=== PATIENT | female | born 1970 | race Caucasian/White ===

== ENCOUNTER → 2016-07-22 | Outpatient (CLI) | payer OTHER ==
[~2016-07-22] MED LIST: GASTROGRAFIN SOLUTION 30ML (Q9963) As Ordered ONE; ISOVUE-370 76% 100ML VIAL (Q9967) As Ordered ONE
--- NOTE | 2016-07-22 17:29 | REP ---
CT ABDOMEN AND PELVIS WITH ORAL AND IV CONTRAST: TECHNIQUE: Axial contrast enhanced images from the lung bases to the pubic symphysis using 100 mL Isovue 370 intravenous contrast material with multiplanar reformations. In the visualized lung bases there is an oval nodular opacity in the right lower lobe laterally, 5 mm in diameter. Recommend CT of the chest to evaluate for other nodules. Liver, spleen, adrenals, pancreas, and kidneys are unremarkable. Gallbladder is grossly unremarkable. There is no hydronephrosis. There is no abdominal aortic aneurysm. No adenopathy, free air or free fluid is seen. No bowel wall thickening is seen. There is no evidence of appendicitis. A dominant follicle is seen in the right ovary measuring 1.4 cm in diameter. The dominant follicle in the left ovary measures 1.6 cm in diameter. There is no other evidence of pelvic mass. Urinary bladder appear unremarkable. IMPRESSION: Oval nodular opacity right lung base measures 5 mm in diameter. Recommend CT of the chest to evaluate for other nodules. There is a dominant follicle in each ovary. No free air or free fluid. No bowel wall thickening. No evidence of appendicitis. Unreviewed
== END ==
LOC: M RAD 14:24
PROVIDERS: ATTEND Physician Assistant
DX: R10.30 Lower abdominal pain, unspecified (principal)

== ENCOUNTER → 2016-07-22 | Outpatient (CLI) | payer OTHER ==
[2016-07-22 10:03] LABS: MEAN CORPUSCULAR HEMOGLOBIN 30.2 pg (27.0-33.0); MEAN CORPUSCULAR HGB CONC 33.8 g/dl (32.0-36.5); MEAN CORPUSCULAR VOLUME 89.2 fl (80.0-96.0); RED CELL DISTRIBUTION WIDTH 12.6 % (11.5-14.5); WHITE BLOOD COUNT 13.1 K/mm3 (4.0-10.0)
--- NOTE | 2016-07-22 10:06 | REP ---
ABDOMINAL SERIES: Supine and erect views of the abdomen demonstrate no free air and no evidence for bowel obstruction. I do not see significantly dilated small bowel loops. A metallic clip is seen in the right lower quadrant and other metallic clips seen in the pelvis. No abnormal calcifications are seen. An accompanying view of the chest demonstrates no acute infiltrate. Heart is normal in size and the mediastinal silhouette is unremarkable. IMPRESSION: Essentially negative abdominal series. Signed by Nicholas Del Rio MD 07/22/2016 05:24 P
[2016-07-22 10:18] LABS: ALBUMIN 3.9 GM/DL (3.2-5.2); ALBUMIN/GLOBULIN RATIO 1.22 (1.00-1.93); ALKALINE PHOSPHATASE 66 U/L (45-117); ALT/SGPT 15 U/L (12-78); ANION GAP 6 MEQ/L (8-16); AST/SGOT 13 U/L (15-37); BILIRUBIN,TOTAL 0.4 MG/DL (0.2-1.0); BLOOD UREA NITROGEN 9 MG/DL (7-18); CALCIUM LEVEL 8.6 MG/DL (8.5-10.1); CARBON DIOXIDE LEVEL 25 MEQ/L (21-32); CHLORIDE LEVEL 107 MEQ/L (98-107); CREATININE FOR GFR 0.85 MG/DL (0.55-1.02); GLOMERULAR FILTRATION RATE > 60.0 (>58); GLUCOSE, FASTING 81 MG/DL (70-105); POTASSIUM SERUM 4.5 MEQ/L (3.5-5.1); SODIUM LEVEL 138 MEQ/L (136-145); TOTAL PROTEIN 7.1 GM/DL (6.4-8.2)
[2016-07-22 10:31] LABS: ERYTHROCYTE SEDIMENTATION RATE 2 mm/hr (0-20)
[2016-07-22 10:54] LABS: EOSINOPHILS 2 % (0-5)
== END ==
LOC: M WUC 09:05
PROVIDERS: ATTEND Physician Assistant
DX: R10.30 Lower abdominal pain, unspecified (principal)

== ENCOUNTER → 2016-07-28 | Outpatient (CLI) | payer OTHER ==
[~2016-07-28] MED LIST changes: -GASTROGRAFIN SOLUTION 30ML (Q9963) As Ordered ONE
--- NOTE | 2016-07-31 07:24 | REP ---
Clinical: Pulmonary nodule. Technique: Axial contrast enhanced images from the lung bases to the thoracic inlet using 100 ml Isovue 370 intravenous contrast material with coronal and sagittal re-formations. Comparison: None. Findings: Scattered chronic-appearing interstitial and subpleural changes are noted. A 5 mm noncalcified pulmonary nodules identified in the right lower lobe (image 73). No further consolidation, nodule or mass lesion identified. No pleural effusion/reaction. No pneumothorax. Tracheobronchial tree is patent. No axillary, hilar, or mediastinal adenopathy. Thoracic aorta and heart/pericardium appear normal. Thyroid gland is normal. Surrounding musculoskeletal structures are intact. Impression: 1. Scattered chronic-appearing changes. 2. A 5 mm noncalcified nodule in the right lower lobe. Consider follow-up examination at 9-12 months. Signed by Shashank Fitzpatrick MD 07/31/2016 07:15 A
== END ==
LOC: M RAD 17:26
PROVIDERS: ATTEND Physician Assistant
DX: R91.1 Solitary pulmonary nodule (principal)

== ENCOUNTER → 2017-05-14 | Outpatient (CLI) | payer BC ==
[~2017-05-14] MED LIST changes: +ISOVUE-370 76% 100ML VIAL (Q9967) As Ordered; -ISOVUE-370 76% 100ML VIAL (Q9967) As Ordered ONE
== END ==
LOC: M RAD 08:42
DX: R91.1 Solitary pulmonary nodule (principal)

== ENCOUNTER → 2017-12-23 | Outpatient (CLI) | payer BC | LOC: M WUC 10:00 | DX: M79.642 Pain in left hand (principal) | CPT/HCPCS: 73130 ==

== ENCOUNTER → 2018-04-08 | Outpatient (REF) | payer BC ==
[2018-04-10 18:21] LABS: HPV HYBRID CAPTURE II Negative (Negative)
== END ==
LOC: M LAB REF 17:23
PROVIDERS: ATTEND Specialist
DX: Z12.4 Encounter for screening for malignant neoplasm of cervix (principal)
CPT/HCPCS: 87624; G0123

== ENCOUNTER → 2018-05-26 | Outpatient (CLI) | payer BC ==
[~2018-05-26] MED LIST changes: -ISOVUE-370 76% 100ML VIAL (Q9967) As Ordered; +ISOVUE-370 76% 100ML VIAL (Q9967) As Ordered ONE
--- NOTE | 2018-05-27 08:41 | REP ---
CT chest with IV contrast: History: Right lower lobe nodule. Annual follow-up. Comparison study May 14, 2017 and July 28, 2016. CT contrast dose: 75 ml of intravenous Isovue [address] findings: There has been no change in the size or appearance of the noncalcified 6 mm right lower lobe pulmonary nodule in the interval since the July 28, 2016 prior study. This has demonstrated just short of 2 years of stability. No other pulmonary nodule is appreciated. Lung gonzalez are otherwise clear. There is some biapical pleuroparenchymal fibrosis mild in degree. No hilar or mediastinal mass or adenopathy is observed. No adrenal lesion is seen on either side. Visualized upper abdominal structures remain unremarkable. No extrathoracic mass or adenopathy is seen. No bony abnormality is noted. Impression: The previously noted right lower lobe pulmonary nodule has demonstrated 22 months of stability. Electronically Signed by Rogerio Leach MD 05/27/2018 09:59 A
== END ==
LOC: M RAD 17:19
PROVIDERS: ATTEND Physician Assistant Medical
DX: R91.1 Solitary pulmonary nodule (principal)
CPT/HCPCS: 71260; Q9967

== ENCOUNTER 2018-07-15 21:22 | Emergency (ER) | payer BC ==
[~2018-07-15] VITALS: Ht 160 cm; Wt 52.3 kg
[2018-07-15] MEDS ORDERED: OXYC1TAB23 PO (21:36)
[2018-07-15] MEDS ORDERED: NS 1,000 ML IV ONE (22:15)
[2018-07-15] MEDS ORDERED: ONDANSETRON 4MG/2ML VIAL (J2405) IV ONE (22:15)
[2018-07-15 22:32] LABS: BASO # 0.1 10^3/uL (0.0-0.2); BASO % 1.2 % (0.0-1.0); EOS # 0.5 10^3/uL (0.0-0.50); EOS % 6.1 % (0.0-3.0); HEMATOCRIT 40.8 % (36.0-47.0); HEMOGLOBIN 13.7 g/dl (12.0-15.5); LYMPH % 35.6 % (24.0-44.0); MEAN CORPUSCULAR HEMOGLOBIN 29.4 pg (27.0-33.0); MEAN CORPUSCULAR HGB CONC 33.6 g/dl (32.0-36.5); MEAN CORPUSCULAR VOLUME 87.6 fl (80.0-96.0); MONO # 0.6 10^3/uL (0.0-0.8); MONO % 7.3 % (0.0-5.0); NEUTROPHILS # 4.2 10^3/uL (1.8-7.7); NEUTROPHILS % 49.6 % (36.0-66.0); PLATELET COUNT, AUTOMATED 337 10^3/uL (150-450); RED BLOOD COUNT 4.66 10^6/uL (4.00-5.40); WHITE BLOOD COUNT 8.4 10^3/uL (4.0-10.0)
[2018-07-15 22:35] LABS: URINE PREG TEST NEGATIVE (NEGATIVE)
[2018-07-15 23:02] LABS: ALBUMIN 4.4 GM/DL (3.2-5.2); ALT/SGPT 17 U/L (12-78); BILIRUBIN,DIRECT < 0.1 MG/DL (0.0-0.2); BILIRUBIN,TOTAL 0.3 MG/DL (0.2-1.0); BLOOD UREA NITROGEN 15 MG/DL (7-18); CALCIUM LEVEL 8.9 MG/DL (8.5-10.1); CARBON DIOXIDE LEVEL 25 MEQ/L (21-32); CHLORIDE LEVEL 108 MEQ/L (98-107); CREATININE FOR GFR 0.87 MG/DL (0.55-1.30); GLOMERULAR FILTRATION RATE > 60.0 (>58); GLUCOSE, FASTING 86 MG/DL (70-100); LIPASE 154 U/L (73-393); SODIUM LEVEL 138 MEQ/L (136-145); TOTAL PROTEIN 7.2 GM/DL (6.4-8.2)
[2018-07-15] MEDS ORDERED: ISOVUE-370 76% 100ML VIAL (Q9967) As Ordered ONE (23:08)
--- NOTE | 2018-07-15 23:55 | REPVR ---
EXAM: CT Abdomen and Pelvis With Contrast EXAM DATE/TIME: 07/15/2018 11:04 PM CLINICAL HISTORY: 47 years old, female; Abdominal pain; Localized; Right; Additional info: Right sided abdominal pain TECHNIQUE: Imaging protocol: Axial computed tomography images of the abdomen and pelvis with intravenous contrast. Coronal and sagittal reformatted images were created and reviewed. Radiation optimization: All CT scans at this facility use at least one of these dose optimization techniques: automated exposure control; mA and/or kV adjustment per patient size (includes targeted exams where dose is matched to clinical indication); or iterative reconstruction. Contrast material: ISO; Contrast volume: 100 ml; Contrast route: AC; COMPARISON: CT ABD PELVIS WITH CONTRAST 07/22/2016 4:22 PM FINDINGS: ABDOMEN: Liver: There is a diffuse decrease in hepatic parenchymal density, consistent with fatty infiltration. Gallbladder and bile ducts: Normal. No calcified stones. No ductal dilation. Pancreas: Normal. No ductal dilation. Spleen: Normal. No splenomegaly. Adrenals: Normal. No mass. Kidneys and ureters: Normal. No hydronephrosis. Stomach and bowel: Diffuse thickening of the gastric wall likely related to incomplete distention. Appendix: Normal appendix. PELVIS: Bladder: Unremarkable as visualized. Reproductive: Unremarkable as visualized. ABDOMEN and PELVIS: Intraperitoneal space: Normal. No free air. No significant fluid collection. Bones/joints: The spine demonstrates mild degenerative changes. Soft tissues: Unremarkable. Vasculature: Normal. No abdominal aortic aneurysm. Lymph nodes: Normal. No enlarged lymph nodes. IMPRESSION: 1. There is a diffuse decrease in hepatic parenchymal density, consistent with fatty infiltration. 2. Diffuse thickening of the gastric wall likely related to incomplete distention. Electronically signed by: Gabo Buckley On 07/15/2018 23:55:01 PM
[2018-07-16] VITALS: BP 121/66
== END 2018-07-16 00:29 | disposition home or self-care (01) ==
LOC: M ED 21:22
DX: R10.9 Unspecified abdominal pain (principal); R11.2 Nausea with vomiting, unspecified; Z88.0 Allergy status to penicillin; Z88.1 Allergy status to other antibiotic agents; Z88.5 Allergy status to narcotic agent; Z91.018 Allergy to other foods; F17.210 Nicotine dependence, cigarettes, uncomplicated
CPT/HCPCS: 36415; 74177; 80048; 80076; 81001; 81025; 83690; 84703; 85025; 93041; 96361; 96374; 99284; J2405; Q9967

== ENCOUNTER → 2018-07-30 | Outpatient (CLI) | payer BC ==
[~2018-07-30] MED LIST changes: -ISOVUE-370 76% 100ML VIAL (Q9967) As Ordered ONE; +OXYC1TAB23 PO
[2018-07-30 18:34] LABS: ALBUMIN 3.9 GM/DL (3.2-5.2); ALT/SGPT 13 U/L (12-78); BILIRUBIN,TOTAL 0.5 MG/DL (0.2-1.0); BLOOD UREA NITROGEN 12 MG/DL (7-18); CALCIUM LEVEL 8.8 MG/DL (8.5-10.1); CARBON DIOXIDE LEVEL 27 MEQ/L (21-32); CHLORIDE LEVEL 108 MEQ/L (98-107); CREATININE FOR GFR 0.76 MG/DL (0.55-1.30); GLOMERULAR FILTRATION RATE > 60.0 (>58); GLUCOSE, FASTING 78 MG/DL (70-100); SODIUM LEVEL 138 MEQ/L (136-145); TOTAL PROTEIN 7.1 GM/DL (6.4-8.2)
[2018-08-03 00:07] LABS: H PYLORI SERUM QUANT IgG ABY 0.22 (0.00-0.79)
[2018-08-05 00:07] LABS: H PYLORI SERUM QUANT IGM <9.0 units (0.0-8.9)
== END ==
LOC: M WUC 14:19
PROVIDERS: ATTEND Physician Assistant
DX: R10.13 Epigastric pain (principal)

== ENCOUNTER 2019-03-14 08:01 | Day surgery (SDC) | payer OTHER ==
[~2019-03-14] VITALS: Ht 162.6 cm; Wt 58.6 kg
[~2019-03-14 08:01] MED LIST changes: +GABA-1171 PO; +LIDOCAINE 1% MDV 20ML VIAL SQ PRN; +PROPOFOL 200 MG/20 ML VIAL As Ordered ONE; +SUMA50TA2 PO
[2019-03-14] MEDS ORDERED: ROPIvacaine 0.5% 30 ML INJECTION (J2795 PER 1MG) ONE (08:02)
[2019-03-14] MEDS ORDERED: LIDOCAINE 2% INJ 100 MG/5 ML SDV (FOR ANES.) As Ordered ONE (08:08)
[2019-03-14] MEDS ORDERED: PROPOFOL 200 MG/20 ML VIAL As Ordered ONE (08:08)
[2019-03-14] MEDS ORDERED: dexameTHASONE 4 MG/ML 1ML VIAL (J1100) As Ordered ONE (08:09)
[2019-03-14] MEDS ORDERED: fentaNYL 100 MCG/2 ML INJECTION (J3010) As Ordered ONE ×2 (08:09→08:42)
[2019-03-14] MEDS ORDERED: ONDANSETRON 4MG/2ML VIAL (J2405) As Ordered ONE (08:09)
[2019-03-14] MEDS ORDERED: CLINDAMYCIN 600 MG/50 ML PREMIX BAG As Ordered ONE (08:21)
[2019-03-14] MEDS ORDERED: KETOROLAC 60 MG/2 ML VIAL (J1885) As Ordered ONE (08:30)
[2019-03-14] MEDS ORDERED: MIDAZOLAM INJ 2 MG/2 ML VIAL (J2250) As Ordered ONE (08:42)
[2019-03-14] MEDS ORDERED: MIDAZOLAM INJ 2 MG/2 ML VIAL (J2250) IV ONE (09:00)
[2019-03-14] MEDS ORDERED: fentaNYL 100 MCG/2 ML INJECTION (J3010) IV ONE (09:00)
[2019-03-14] MEDS ORDERED: CLINDAMYCIN 600 MG in IV 1 EA IV ONE (09:00)
[2019-03-14] MEDS ORDERED: LR 1,000 ML IV ONE (09:00)
[2019-03-14] MEDS ORDERED: BUPIVACAINE HCL 0.5% 10 ML VIAL As Ordered ONE (09:08)
[2019-03-14] MEDS ORDERED: ACETAMINOPHEN 1000MG 100ML IV BTL (OFIRMEV) (J0131 PER 10MG) As Ordered ONE (11:00)
[2019-03-14] MEDS ORDERED: oxyCODONE 5MG TAB As Ordered ONE (12:30)
[2019-03-14] MEDS: fentaNYL 100 MCG/2 ML INJECTION (J3010) IV PRN ×4 (12:32→12:47)
--- NOTE | 2019-03-14 12:40 | REP ---
Limited right knee series: Intraoperative imaging. Four views. History: Knee arthroscopy. 9 seconds of fluoroscopy time is reported. Findings: A sequence of four last image hold fluoroscopically obtained spot radiographs document operative manipulation right knee. Electronically Signed by Rogerio Leach MD 03/14/2019 12:31 P
[2019-03-14] MEDS ORDERED: oxyCODONE 5MG TAB PO PRN (12:45)
[2019-03-14] MEDS ORDERED: LR 1,000 ML IV SCH ×2 (12:45)
[2019-03-14] MEDS ORDERED: ONDANSETRON 4MG/2ML VIAL (J2405) IV PRN (12:45)
[2019-03-14] MEDS ORDERED: HYDROMORPHONE HCL 0.5 MG/ 0.5 ML SYRINGE (J1170 PER 1) As Ordered ONE (13:09)
[2019-03-14] MEDS ORDERED: BUPIVACAINE HCL 0.25% 30 ML VIAL As Ordered ONE (13:17)
[2019-03-14] MEDS ORDERED: METOCLOPRAMIDE INJ 10MG/2ML VIAL (J2765) As Ordered ONE (13:30)
--- NOTE | 2019-03-14 13:53 | REP ---
RIGHT KNEE SERIES: Two views. HISTORY: Postop pain. FINDINGS: AP and lateral views demonstrate an air-fluid level in the suprapatellar bursa consistent with postoperative air and fluid. There are metallic screws in the distal femur and proximal tibia consistent with ACL reconstruction/revision. Alignment is unremarkable. Electronically Signed by Rogerio Leach MD 03/14/2019 03:32 P
[2019-03-14] MEDS ORDERED: METOCLOPRAMIDE INJ 10MG/2ML VIAL (J2765) IV PRN (14:15)
[2019-03-14] MEDS ORDERED: HYDROMORPHONE HCL 0.5 MG/ 0.5 ML SYRINGE (J1170 PER 1) IV PRN (14:15)
[2019-03-14 15:00] VITALS: BP 114/60
--- NOTE | 2019-03-15 14:26 | RO ---
DATE OF PROCEDURE: 03/14/2019 PREOPERATIVE DIAGNOSES: 1. Right knee anterior cruciate ligament re-tear. 2. Right knee possible meniscus tear. 3. Right knee chondromalacia. POSTOPERATIVE DIAGNOSES: 1. Right knee anterior cruciate ligament re-tear. 2. Right knee trochlear chondromalacia. PROCEDURE: 1. Right knee arthroscopic assisted anterior cruciate ligament reconstruction (revision) with allograft. 2. Right knee arthroscopic chondroplasty of the trochlea. SURGEON: Vimal Hudson MD SINK CUTTER: GEOVANNI Thacker ANESTHESIA: General with a preoperative nerve block. IV FLUIDS: Lactated Ringer's. ESTIMATE BLOOD LOSS: 10 mL. IMPLANTS: Arthrex 7 x 23 mm and 10 x 28 mm PEEK interference screws and an Arthrex 4.75 mm BioComposite SwiveLock anchor. CLOSURE: Nylon. PROCEDURE: The patient was identified in preoperative holding area. The right leg marked by myself. She had an abductor canal block by anesthesia. She was brought to the operating room and placed supine on a well-padded OR table. All bony prominences were well padded. General anesthesia was induced. Exam under anesthesia revealed a grade 2B Jennifer with a positive pivot shift. She was grossly stable to varus and valgus stress. Negative posterior drawer. 2+ quadrants lateral patellar mobility with a firm endpoint. Negative J sign. A well-padded tourniquet was applied to the right thigh and then the entire right leg was prepped and draped in a normal sterile fashion from the toes up to the tourniquet. She received appropriate IV antibiotics within 1 hour of incision. Prior to incision, a time out was performed per hospital protocol. Ron Cosme was present for the entire procedure and participated all essential portions of the procedure. This included patient positioning, draping, holding the arthroscope, preparing the allograft on the back table, hyperflexion of the knee during drilling, retrieving suture and assisting with screw placement and performing the wound closure. The right knee was insufflated with Lactated Ringer's. A modified anterolateral portal hugging the lateral edge of the patellar tendon was made with an 11 blade. 30 degree arthroscope was introduced into the joint. There is a focal area of a near full thickness chondral damage at the central sulcus of the trochlea. This appeared to be quite small, 4x4 mm roughly. No exposed bone. The patella itself was in great condition. The medial compartment was entered where there was grade 1 chondromalacia. No medial meniscus tears. The ACL was then inspected and fibers from her initial BTB autograft ACL reconstruction were present, however they appeared lax. The graft was also completely vertical, the femoral tunnel appear to be at 12 o'clock position. The leg was brought to the figure of four position. There was no tearing of the lateral meniscus and grade 1 chondromalacia lateral compartment. An anteromedial portal was created under direct visualization to give the appropriate angle for drilling the femoral tunnel through an anteromedial portal. On probing the medial and lateral meniscus there was no tearing. On probing of the chondral defect in the trochlea, the edges were unstable so I performed a chondroplasty with a shaver. This measured 5 x 4 mm, it is at the very central sulcus. I then probed the ACL and the fibers were noted to be lax. The graft was mobilized and the anatomic attachment for a single bundle ACL reconstruction was visualized. I then used the shaver and radiofrequency cautery to remove the ACL fibers. I marked the appropriate femoral tunnel location with a curette. The 8 mm [id number] guide was then used to advance a Beath pin out the lateral femoral condyle with the knee hyperflexed. A 10 mm low profile reamer was then used to create a socket 25 mm in depth. Bony debris removed with the shaver. A PDS passing suture was placed through the Beath pin, retrieved out the lateral knee and used to pass the graft later in the case. The distal 3 cm of her initial ACL reconstruction incision were opened with a 15 blade and then dissected over to the medial tibial plateau. I probed the bone with a spinal needle in an attempt to locate the initial tibial tunnel, however it had grown over with bone. So I used the tibial drill guide set to 55 degrees, advanced the Beath pin through the medial tibia entering the joint through platinum ACL fibers. Initial guide pin position was to anterior. This was redirected, however I hit the initial screw. So then a large C-arm was used to obtain AP and lateral views. The femoral tunnel had been successfully drilled without getting near the femoral screw. The tibial screw, which was also a metal, was relatively posterior but significantly imbedded within bone, so I was able to drill a new guide pin with the tibial drill guide and this entered in line with the anterior horn lateral meniscus, roughly 9 mm also anterior to the inner meniscal ligament. The position was then checked here on the C-arm and was very close to initial metal screw. So, initially I tried to use a 10 mm reamer over the guide pin however that hit the tibial screw, so then I used a 7 mm reamer and I was able to slip past the tibial screw. I then sequentially reamed with a 9 and then 10 mm reamers. This time I was able to get the 10 past the screw without dislodging it, but also not ending up to anterior. The shaver was then used to clear soft tissue off of the tibial aperture to help prevent a cyclops lesion. PDS passing suture retrieved out the tibial tunnel. I should have mentioned that at the beginning of the case Ron prepared the allograft in the back table. This was an Achilles allograft with a precut 10 mm diameter bone dowel. We drilled two 2 mm drill holes with #2 FiberWire through each. A running locking whip stitch with #2 FiberWire in a Krackow fashion from 6 to 3, and then back to 6 cm from the bone tendon junction. Excess tendon trimmed and discarded. Then the graft was loaded and was passed into the joint with that PDS passing suture. The bone block was docked into the femoral tunnel. I should mention there was about a 1-2 mm back wall at the femoral tunnel. This was nice and low on the femoral condyle compared to the initial tunnel. Nitinol wire was passed between the bone block and tunnel, and then tapped with a 7 mm tap. Then an Arthrex 7 x 23 mm PEEK interference screw was placed over the nitinol wire with the knee hyperflexed. This further positioned the bone block posterior and inferior. The screw had excellent fixation. The knee was brought into full extension. There was no notch impingement. The knee was brought into full extension on the OR table, four sterile bumps placed behind the distal femur and then a nitinol wire placed between the soft tissue portion of the graft and the tibial tunnel. I then placed a 10 x 28 mm PEEK interference screw over the nitinol wire as I applied distal traction to the sutures and my assistant housekeeping manager applied a posterior drawer of the tibial tubercle. This had excellent fixation. Given this being a revision setting with soft tissue fixation on the tibia, I elected to back this up with a 4.75 mm BioComposite SwiveLock anchor that was placed 2-3 cm distal to the initial screw. That had excellent fixation. There is a grade 1A Jennifer. Negative posterior drawer. I then cycled the knee 0-120 degrees, repeated the Jennifer. There is no change. The scope was placed into the knee, the graft was probed and found to be under excellent tension. The knee was irrigated and drained. Portals were closed with nylon. The distal incision was closed with #2-0 Vicryl and nylon. Bulky sterile dressing applied. Tourniquet was let down at 120 minutes. The patient was placed into a hinged knee brace, brace locked in extension. All counts were correct times two. Complications none. She was transferred to the postanesthesia care unit (PACU) in stable condition.
== END 2019-03-14 15:15 | disposition home or self-care (01) ==
LOC: M SDC 08:01
PROVIDERS: ATTEND Orthopaedic Surgery
DX: S83.31XA Tear of articular cartilage of right knee, current, initial encounter (principal); M94.261 Chondromalacia, right knee; X58.XXXA Exposure to other specified factors, initial encounter; Y92.89 Other specified places as the place of occurrence of the external cause; Y93.9 Activity, unspecified; Y99.9 Unspecified external cause status; K21.9 Gastro-esophageal reflux disease without esophagitis; F17.218 Nicotine dependence, cigarettes, with other nicotine-induced disorders; Z79.899 Other long term (current) drug therapy; Z91.010 Allergy to peanuts; Z88.0 Allergy status to penicillin; Z88.5 Allergy status to narcotic agent
CPT/HCPCS: 29879; 29888; 64425; 73560; 76000; C1713; C1762; J0131; J1100; J1885; J2250; J2405; J2765; J2795; J3010

== ENCOUNTER → 2019-05-16 | Outpatient (REF) | payer OTHER ==
[~2019-05-16] MED LIST changes: -LIDOCAINE 1% MDV 20ML VIAL SQ PRN; -PROPOFOL 200 MG/20 ML VIAL As Ordered ONE
[2019-05-16 17:59] LABS: BASO # 0.1 10^3/uL (0.0-0.2); BASO % 1.2 % (0.0-1.0); EOS # 0.2 10^3/uL (0.0-0.5); HEMATOCRIT 42.5 % (36.0-47.0); LYMPH # 2.2 10^3/uL (1.5-5.0); LYMPH % 29.8 % (24.0-44.0); MEAN CORPUSCULAR HGB CONC 32.9 g/dl (32.0-36.5); MEAN CORPUSCULAR VOLUME 88.2 fl (80.0-96.0); MONO # 0.5 10^3/uL (0.0-0.8); MONO % 7.1 % (0.0-5.0); NEUTROPHILS # 4.3 10^3/uL (1.5-8.5); NEUTROPHILS % 58.6 % (36.0-66.0); PLATELET COUNT, AUTOMATED 372 10^3/uL (150-450); RED BLOOD COUNT 4.82 10^6/uL (4.00-5.40); WHITE BLOOD COUNT 7.3 10^3/uL (4.0-10.0)
[2019-05-16 18:55] LABS: ERYTHROCYTE SEDIMENTATION RATE 3 mm/hr (0-20)
== END ==
LOC: M LABDRAW1 16:41
PROVIDERS: ATTEND Orthopaedic Surgery
DX: S83.511D Sprain of anterior cruciate ligament of right knee, subsequent encounter (principal); X58.XXXD Exposure to other specified factors, subsequent encounter; Y92.9 Unspecified place or not applicable

== ENCOUNTER → 2019-06-09 | Outpatient (REF) | payer OTHER ==
[2019-06-15 00:06] LABS: F013-IGE PEANUT <0.10 kU/L (Class 0); F017-IGE FILBERT <0.10 kU/L (Class 0); F018-IGE BRAZIL NUT <0.10 kU/L (Class 0); F020-IGE ALMOND <0.10 kU/L (Class 0); F049-IGE APPLE <0.10 kU/L (Class 0); F201-IGE PECAN NUT <0.10 kU/L (Class 0); F202-IGE CASHEW NUT <0.10 kU/L (Class 0); F256-IGE WALNUT <0.10 kU/L (Class 0); F345-IGE MACADAMIA NUT <0.10 kU/L (Class 0); TRYPTASE 4.3 ug/L (2.2-13.2)
== END ==
LOC: M LABDRAW1 14:56
PROVIDERS: ATTEND Allergy & Immunology Allergy
DX: T78.04XA Anaphylactic reaction due to fruits and vegetables, initial encounter (principal); L50.3 Dermatographic urticaria

== ENCOUNTER → 2019-08-24 | Outpatient (REF) | payer OTHER ==
[2019-08-24 19:53] LABS: CHLAMYDIA DNA AMPLIFICATION NEGATIVE (NEGATIVE); GC DNA AMPLIFICATION NEGATIVE (NEGATIVE)
== END ==
LOC: M SFHCWAGY 17:14
PROVIDERS: ATTEND Specialist
DX: Z20.2 Contact with and (suspected) exposure to infections with a predominantly sexual mode of transmission (principal); Z01.419 Encounter for gynecological examination (general) (routine) without abnormal findings; Z12.4 Encounter for screening for malignant neoplasm of cervix

== ENCOUNTER → 2019-08-29 | Outpatient (CLI) | payer BC ==
--- NOTE | 2019-08-29 11:32 | REPMRS ---
Patient History The patient states she had a clinical breast exam in July 2019.Family history of breast cancer in maternal grandmother, breast cancer in maternal aunt. 3D TOMOSYNTHESIS WAS PERFORMED. The Anibal Montalvo lifetime risk for breast cancer is 16.5%. [facility] Screen Mammo: August 29, 2019 - Exam #: [id number] Bilateral CC and MLO view(s) were taken. Technologist: Carolyn Woodard, Technologist FINDINGS: The breast tissue is extremely dense which could obscure a lesion on mammography. There has been no change in the appearance of the mammogram from the prior studies. There is a moderate amount of residual fibroglandular tissue which is fairly symmetric. There is no interval development of dominant mass, areas of architectural distortion, or clustered microcalcification typical of malignancy. Assessment: BI-RADS/ACR category 1 mammogram. Negative Mammogram. Recommendation Routine screening mammogram in 1 year (for women over age 40). This mammogram was interpreted with the aid of an FDA-approved computer-aided dectection system. Electronically Signed By: Nicholas Del Rio MD 08/29/19 [id number]
== END ==
LOC: M WHC 08:36
PROVIDERS: ATTEND Specialist
DX: Z12.31 Encounter for screening mammogram for malignant neoplasm of breast (principal); Z80.3 Family history of malignant neoplasm of breast

== ENCOUNTER → 2019-11-15 | Outpatient (REF) | payer BC, OTHER ==
[2020-01-05 14:19] LABS: FOLLICLE STIMULATING HORMONE 19.6 mIU/mL; LUTEINIZING HORMONE 11.2 mIU/mL
== END ==
LOC: M SFHCWAGY 11:32
PROVIDERS: ATTEND Specialist
DX: N91.2 Amenorrhea, unspecified (principal)

== ENCOUNTER → 2020-01-19 | Outpatient (CLI) | payer BC ==
--- NOTE | 2020-01-19 13:07 | REP ---
INDICATION: N83.209 OVARIAN CYST COMPARISON: 04/19/2015 TECHNIQUE: Transabdominal pelvic ultrasound followed by transvaginal examination for better evaluation of the endometrium and adnexa with color Doppler evaluation of the ovaries. FINDINGS: Bladder is unremarkable and measures 8.9 x 8.2 x 9.4 cm. Normal anteverted uterus measures 7.9 x 4.0 x 4.9 cm. The endometrial complex measures 4.1 mm thickness. Subcentimeter nabothian cysts noted. Ovaries demonstrate satisfactory vascularity without torsion. The left ovary measures 3.1 x 1.1 x 1.9 cm with 9 mm cyst. The right ovary measures 3.2 x 3.1 x 4.2 cm and includes multiple cysts measuring up to 2.4 cm diameter. No pelvic free fluid or adnexal mass lesion. IMPRESSION: 1. Normal uterus and left ovary. 2. Multiple cystic changes to the right ovary. Findings are nonspecific and possibly physiologic. Consider follow-up examination in 4-6 weeks if necessary. <Electronically signed by Shashank Fitzpatrick > 01/19/20 1923
== END ==
LOC: M WHC 11:18
PROVIDERS: ATTEND Specialist
DX: N83.209 Unspecified ovarian cyst, unspecified side (principal)

== ENCOUNTER → 2020-07-11 | Outpatient (CLI) | payer BC ==
[2020-07-11 21:33] LABS: ALBUMIN 4.2 GM/DL (3.2-5.2); ALT/SGPT 16 U/L (12-78); BILIRUBIN,TOTAL 0.4 MG/DL (0.2-1.0); BLOOD UREA NITROGEN 12 MG/DL (7-18); CALCIUM LEVEL 9.6 MG/DL (8.5-10.1); CARBON DIOXIDE LEVEL 25 MEQ/L (21-32); CHLORIDE LEVEL 106 MEQ/L (98-107); CHOLESTEROL LEVEL 168 MG/DL (<200); CREATININE FOR GFR 0.94 MG/DL (0.55-1.30); GLOMERULAR FILTRATION RATE > 60.0 (>58); GLUCOSE, FASTING 89 MG/DL (70-100); HDL CHOLESTEROL 76 MG/DL (>40); LDL CHOLESTEROL 78 MG/DL (<100); NON-HDL-C 92 MG/DL; POTASSIUM SERUM 4.1 MEQ/L (3.5-5.1); SODIUM LEVEL 138 MEQ/L (136-145); TRIGLYCERIDES LEVEL 68 MG/DL (<150)
== END ==
LOC: M PLALAB 15:43
PROVIDERS: ATTEND Nurse Practitioner Family
DX: Z00.00 Encounter for general adult medical examination without abnormal findings (principal)

== ENCOUNTER → 2020-07-11 | Outpatient (CLI) | payer OTHER ==
[2020-07-11 18:20] LABS: PLATELET COUNT, AUTOMATED 360 10^3/uL (150-450)
[2020-07-11 18:27] LABS: INR 0.99; PROTHROMBIN TIME 13.3 SECONDS (12.5-14.3)
[2020-07-11 18:28] LABS: PARTIAL THROMBOPLASTIN TIME 33.4 SECONDS (24.2-38.5)
== END ==
LOC: M PLALAB 15:46
PROVIDERS: ATTEND Physician Assistant
DX: M47.27 Other spondylosis with radiculopathy, lumbosacral region (principal)

== ENCOUNTER → 2020-11-28 | Outpatient (CLI) | payer OTHER, BC ==
[2020-11-28 19:05] LABS: GC DNA AMPLIFICATION NEGATIVE (NEGATIVE)
[2020-11-28 19:21] LABS: HEPATITIS C VIRUS ABY INDEX < 0.0 INDEX (<0.8); HIV 1&2 SCREEN CENTAUR NEGATIVE (NEGATIVE)
== END ==
LOC: M PLALAB 14:11
PROVIDERS: ATTEND Specialist
DX: Z20.2 Contact with and (suspected) exposure to infections with a predominantly sexual mode of transmission (principal)

== ENCOUNTER → 2020-11-28 | Outpatient (REF) | payer OTHER, BC | LOC: M SFHCWAGY 13:17 | PROVIDERS: ATTEND Specialist | DX: Z12.4 Encounter for screening for malignant neoplasm of cervix (principal); R87.612 Low grade squamous intraepithelial lesion on cytologic smear of cervix (LGSIL) ==

== ENCOUNTER → 2021-01-01 | Outpatient (REF) | payer OTHER, BC | LOC: M WUC 19:41 | PROVIDERS: ATTEND Physician Assistant | DX: J06.9 Acute upper respiratory infection, unspecified (principal) ==

== ENCOUNTER → 2021-02-05 | Outpatient (REF) | payer OTHER, BC | LOC: M SFHCWAGY 17:17 | PROVIDERS: ATTEND Specialist | DX: R87.612 Low grade squamous intraepithelial lesion on cytologic smear of cervix (LGSIL) (principal) ==

== ENCOUNTER → 2021-03-11 | Outpatient (REF) | payer OTHER, BC | LOC: M WUC 09:36 | PROVIDERS: ATTEND Physician Assistant Medical | DX: J06.9 Acute upper respiratory infection, unspecified (principal); J20.9 Acute bronchitis, unspecified ==

== ENCOUNTER → 2021-04-03 | Outpatient (REF) | LOC: M LABSMTC 09:41 | PROVIDERS: ATTEND Pediatrics | DX: Z11.52 Encounter for screening for COVID-19 (principal) ==

== ENCOUNTER → 2021-08-07 | Outpatient (CLI) | payer BC, OTHER ==
[~2021-08-07] MED LIST changes: +ISOVUE-370 76% 100ML VIAL As Ordered ONE
== END ==
LOC: M RAD 15:03
PROVIDERS: ATTEND Nurse Practitioner Family
DX: J98.4 Other disorders of lung (principal)
CPT/HCPCS: 71260; Q9967

== ENCOUNTER → 2021-08-07 | Outpatient (CLI) | payer BC, OTHER ==
[~2021-08-07] MED LIST changes: -ISOVUE-370 76% 100ML VIAL As Ordered ONE
[2021-08-07 10:50] LABS: ALBUMIN 3.5 GM/DL (3.2-5.2); ALT/SGPT 13 U/L (12-78); BILIRUBIN,TOTAL 0.5 MG/DL (0.2-1.0); BLOOD UREA NITROGEN 13 MG/DL (7-18); CALCIUM LEVEL 9.4 MG/DL (8.5-10.1); CARBON DIOXIDE LEVEL 26 MEQ/L (21-32); CHLORIDE LEVEL 105 MEQ/L (98-107); CHOLESTEROL LEVEL 181 MG/DL (<200); CHOLESTEROL RISK RATIO 2.873 (<5); CREATININE FOR GFR 0.97 MG/DL (0.55-1.30); GLOMERULAR FILTRATION RATE > 60.0 (>58); GLUCOSE, FASTING 82 MG/DL (70-100); HDL CHOLESTEROL 63 MG/DL (>40); LDL CHOLESTEROL 91 MG/DL (<100); NON-HDL-C 118 MG/DL; POTASSIUM SERUM 3.9 MEQ/L (3.5-5.1); SODIUM LEVEL 138 MEQ/L (136-145); TOTAL PROTEIN 6.8 GM/DL (6.4-8.2); TRIGLYCERIDES LEVEL 133 MG/DL (<150)
== END ==
LOC: M WUC 08:25
PROVIDERS: ATTEND Nurse Practitioner Family
DX: Z00.00 Encounter for general adult medical examination without abnormal findings (principal)

== ENCOUNTER → 2021-09-09 | Outpatient (CLI) | payer BC, OTHER ==
[2021-09-09 15:56] LABS: PLATELET COUNT, AUTOMATED 372 10^3/uL (150-450)
[2021-09-09 16:07] LABS: INR 0.91; PROTHROMBIN TIME 12.7 SECONDS (12.7-14.5)
[2021-09-09 16:08] LABS: PARTIAL THROMBOPLASTIN TIME 30.6 SECONDS (25.9-37.0)
== END ==
LOC: M WUC 13:28
PROVIDERS: ATTEND Physician Assistant
DX: M47.27 Other spondylosis with radiculopathy, lumbosacral region (principal)

== ENCOUNTER → 2021-09-10 | Outpatient (CLI) | payer BC, OTHER ==
[2021-09-10 18:34] LABS: HCG, SERUM QUANTITATIVE < 1.0 MIU/ML
[2021-09-10 18:40] LABS: HCG, SERUM QUALITATIVE NEGATIVE (NEGATIVE)
== END ==
LOC: M PLALAB 14:56
PROVIDERS: ATTEND Nurse Practitioner Family
DX: Z32.01 Encounter for pregnancy test, result positive (principal)

== ENCOUNTER → 2021-10-03 | Outpatient (CLI) | payer OTHER ==
[~2021-10-03] MED LIST changes: +ISOVUE-300 61% 50ML VIAL As Ordered ONE; +LIDOCAINE 1% MDV 20ML VIAL As Ordered ONE
== END ==
LOC: M RADPRO 08:36
PROVIDERS: ATTEND Physician Assistant
DX: R93.7 Abnormal findings on diagnostic imaging of other parts of musculoskeletal system (principal); M25.361 Other instability, right knee
CPT/HCPCS: 27369; 73580; 73701; Q9967

== ENCOUNTER → 2021-11-11 | Outpatient (CLI) | payer OTHER ==
[~2021-11-11] MED LIST changes: -ISOVUE-300 61% 50ML VIAL As Ordered ONE; -LIDOCAINE 1% MDV 20ML VIAL As Ordered ONE
[2021-11-11 13:32] LABS: FOLLICLE STIMULATING HORMONE 43.9 mIU/mL; LUTEINIZING HORMONE 12.8 mIU/mL
== END ==
LOC: M PLALAB 11:06
PROVIDERS: ATTEND Specialist
DX: N83.209 Unspecified ovarian cyst, unspecified side (principal)

== ENCOUNTER → 2021-11-15 | Outpatient (CLI) | payer BC, OTHER | LOC: M WHC 08:28 | PROVIDERS: ATTEND Specialist | DX: N85.8 Other specified noninflammatory disorders of uterus (principal) ==

== ENCOUNTER → 2021-11-15 | Outpatient (CLI) | payer BC, OTHER | LOC: M WHC 08:29 | PROVIDERS: ATTEND Family Medicine | DX: Z12.31 Encounter for screening mammogram for malignant neoplasm of breast (principal) ==

== ENCOUNTER 2022-01-24 13:21 | Emergency (ER) | payer OTHER, BC ==
[~2022-01-24] VITALS: Ht 162.6 cm; Wt 61.3 kg
[2022-01-24] MEDS ORDERED: PREG50CA PO (13:32)
[2022-01-24] MEDS ORDERED: MORPHINE 4 MG/ML 1ML VIAL/SYRINGE IV ONE (14:00)
[2022-01-24] MEDS ORDERED: HYDROMORPHONE HCL 0.5 MG/ 0.5 ML SYRINGE (J1170 PER 1) IV ONE (14:20)
[2022-01-24 14:46] LABS: HEMATOCRIT 38.7 % (36.0-47.0); HEMOGLOBIN 12.9 g/dl (12.0-15.5); MEAN CORPUSCULAR HEMOGLOBIN 29.6 pg (27.0-33.0); MEAN CORPUSCULAR HGB CONC 33.3 g/dl (32.0-36.5); MEAN CORPUSCULAR VOLUME 88.8 fl (80.0-96.0); PLATELET COUNT, AUTOMATED 342 10^3/uL (150-450); RED BLOOD COUNT 4.36 10^6/uL (4.00-5.40); WHITE BLOOD COUNT 9.1 10^3/uL (4.0-10.0)
[2022-01-24 15:06] LABS: INR 0.94; PROTHROMBIN TIME 12.8 SECONDS (12.5-14.5)
[2022-01-24 15:07] LABS: PARTIAL THROMBOPLASTIN TIME 28.2 SECONDS (24.8-34.2)
[2022-01-24 16:05] VITALS: BP 139/82
== END 2022-01-24 16:10 | disposition home or self-care (01) ==
LOC: M ED 13:21
DX: G89.18 Other acute postprocedural pain (principal); M79.661 Pain in right lower leg; F17.210 Nicotine dependence, cigarettes, uncomplicated; Z88.0 Allergy status to penicillin; Z88.1 Allergy status to other antibiotic agents; Z88.6 Allergy status to analgesic agent; Z91.018 Allergy to other foods; Z79.899 Other long term (current) drug therapy
CPT/HCPCS: 80047; 85027; 85610; 85730; 93971; 96374; 99284; J1170

== ENCOUNTER 2022-03-19 09:52 | Emergency (ER) | payer BC, OTHER ==
[~2022-03-19] VITALS: Ht 165.1 cm; Wt 62.0 kg
[~2022-03-19 09:52] MED LIST changes: +PREG50CA PO
[2022-03-19 15:45] LABS: BASO # 0.1 10^3/uL (0.0-0.2); BASO % 1.2 % (0.0-1.0); EOS # 0.3 10^3/uL (0.0-0.5); EOS % 4.9 % (0.0-3.0); HEMOGLOBIN 14.3 g/dl (12.0-15.5); LYMPH # 2.6 10^3/uL (1.5-5.0); LYMPH % 38.4 % (24.0-44.0); MEAN CORPUSCULAR HEMOGLOBIN 28.6 pg (27.0-33.0); MEAN CORPUSCULAR HGB CONC 32.5 g/dl (32.0-36.5); MONO # 0.5 10^3/uL (0.0-0.8); NEUTROPHILS # 3.2 10^3/uL (1.5-8.5); NEUTROPHILS % 47.2 % (36.0-66.0); PLATELET COUNT, AUTOMATED 552 10^3/uL (150-450); WHITE BLOOD COUNT 6.8 10^3/uL (4.0-10.0)
[2022-03-19 15:59] LABS: CK-MB VALUE MASS < 1.0 NG/ML (<3.6)
[2022-03-19 16:01] LABS: BLOOD UREA NITROGEN 11 MG/DL (9-23); CALCIUM LEVEL 9.9 MG/DL (8.5-10.1); CARBON DIOXIDE LEVEL 28 MMOL/L (20-31); CHLORIDE LEVEL 105 MMOL/L (98-107); CREATININE FOR GFR 0.71 MG/DL (0.55-1.30); GLOMERULAR FILTRATION RATE > 60.0 (>58); GLUCOSE, FASTING 83 MG/DL (60-100); POTASSIUM SERUM 4.2 MMOL/L (3.5-5.1); SODIUM LEVEL 140 MMOL/L (136-145)
[2022-03-19 16:03] LABS: THYROID STIMULATING HORMONE 0.324 uIU/ML (0.55-4.78)
[2022-03-19 16:05] LABS: FREE T4 1.05 NG/DL (0.89-1.76)
[2022-03-19 16:07] LABS: CPK CREATINE PHOSPHOKINASE 102 U/L (34-145); MB/CK RELATIVE INDEX 0.98 (< OR =4)
[2022-03-19] MEDS ORDERED: HOLTER MONITOR XX (16:07)
[2022-03-19 16:12] LABS: INR 0.91; PARTIAL THROMBOPLASTIN TIME 33.8 SECONDS (24.8-34.2); PROTHROMBIN TIME 12.4 SECONDS (12.5-14.5)
[2022-03-19 16:15] LABS: D-DIMER QUANT 384.34 ng/ml (<500)
[2022-03-19 17:36] VITALS: BP 124/70
== END 2022-03-19 17:39 | disposition home or self-care (01) ==
LOC: M ED 09:52
DX: R07.9 Chest pain, unspecified (principal); E03.9 Hypothyroidism, unspecified; D75.839 Thrombocytosis, unspecified; G43.909 Migraine, unspecified, not intractable, without status migrainosus; F17.200 Nicotine dependence, unspecified, uncomplicated; F10.10 Alcohol abuse, uncomplicated; Z87.442 Personal history of urinary calculi; Z88.0 Allergy status to penicillin; Z88.6 Allergy status to analgesic agent; Z88.1 Allergy status to other antibiotic agents; Z91.018 Allergy to other foods

== ENCOUNTER → 2022-03-25 | Outpatient (CLI) | payer BC, OTHER ==
[~2022-03-25] MED LIST changes: +HOLTER MONITOR XX
== END ==
LOC: M EKG 10:04
PROVIDERS: ATTEND Physician Assistant Medical
DX: R07.89 Other chest pain (principal)

== ENCOUNTER → 2022-04-11 | Outpatient (CLI) | payer BC, OTHER | LOC: M LAB 13:04 | PROVIDERS: ATTEND Nurse Practitioner Family | DX: R23.2 Flushing (principal) ==

== ENCOUNTER → 2022-04-15 | Outpatient (REF) | payer BC, OTHER ==
[2022-04-19 00:08] LABS: DOPAMINE 468 ug/24 hr (0-510); DOPAMINE TOTAL URINE 260 ug/L (Undefined); EPINEPHRINE 5 ug/24 hr (0-20); EPINEPHRINE TOTAL URINE 3 ug/L (Undefined); METANEPHRINE TOTAL URINE 97 ug/L (Undefined); METANEPHRINE URINE 175 ug/24 hr (36-209); NOREPINEPHRINE 41 ug/24 hr (0-135); NOREPINEPHRINE TOTAL URINE 23 ug/L (Undefined); NORMETANEPHRINE TOTAL URINE 250 ug/L (Undefined); NORMETANEPHRINE URINE 450 ug/24 hr (131-612)
== END ==
LOC: M LAB REF 11:42
PROVIDERS: ATTEND Internal Medicine Cardiovascular Disease
DX: R23.2 Flushing (principal)

== ENCOUNTER → 2022-05-01 | Outpatient (CLI) | payer BC, OTHER ==
[2022-05-01 22:51] LABS: FREE T4 0.84 NG/DL (0.89-1.76); THYROID STIMULATING HORMONE 0.494 uIU/ML (0.55-4.78)
== END ==
LOC: M WUC 15:16
PROVIDERS: ATTEND Nurse Practitioner Family
DX: R94.6 Abnormal results of thyroid function studies (principal)

== ENCOUNTER → 2022-07-03 | Outpatient (CLI) | payer BC, OTHER ==
[2022-07-03 17:30] LABS: TOTAL T3 114.8 NG/DL (60.0-181.0)
[2022-07-03 17:31] LABS: FREE T4 0.84 NG/DL (0.89-1.76); THYROID PEROXIDASE ANTIBODY < 28.0 U/ML (<60.0); THYROID STIMULATING HORMONE 1.008 uIU/ML (0.55-4.78)
== END ==
LOC: M WUC 11:02
PROVIDERS: ATTEND Nurse Practitioner Family
DX: R94.6 Abnormal results of thyroid function studies (principal)

== ENCOUNTER → 2023-06-12 | Outpatient (CLI) | payer OTHER, BC ==
[2023-06-12 16:38] LABS: PLATELET COUNT, AUTOMATED 323 10^3/uL (150-450)
[2023-06-12 17:05] LABS: INR 0.98; PARTIAL THROMBOPLASTIN TIME 35.5 SECONDS (24.8-34.2); PROTHROMBIN TIME 12.7 SECONDS (12.5-14.5)
== END ==
LOC: M PLALAB 12:36
PROVIDERS: ATTEND Physical Medicine & Rehabilitation
DX: Z01.818 Encounter for other preprocedural examination (principal)

== ENCOUNTER → 2023-06-29 | Outpatient (REF) | payer BC | LOC: M SFHCWAGY 13:11 | PROVIDERS: ATTEND Specialist | DX: Z01.419 Encounter for gynecological examination (general) (routine) without abnormal findings (principal); Z77.9 Other contact with and (suspected) exposures hazardous to health | CPT/HCPCS: 87624; G0123 ==

== ENCOUNTER → 2023-06-29 | Outpatient (CLI) | payer BC ==
[2023-06-29 18:49] LABS: FOLLICLE STIMULATING HORMONE 135.3 mIU/ML
== END ==
LOC: M PLALAB 14:40
PROVIDERS: ATTEND Specialist
DX: Z01.419 Encounter for gynecological examination (general) (routine) without abnormal findings (principal); Z20.2 Contact with and (suspected) exposure to infections with a predominantly sexual mode of transmission; N92.6 Irregular menstruation, unspecified

== ENCOUNTER → 2023-06-29 | Outpatient (CLI) | payer BC | LOC: M WHC 09:21 | PROVIDERS: ATTEND Specialist | DX: Z12.31 Encounter for screening mammogram for malignant neoplasm of breast (principal); R92.343 Mammographic extreme density, bilateral breasts ==

== ENCOUNTER → 2023-09-04 | Outpatient (REF) | payer BC | LOC: M SFHCWAGY 15:01 | PROVIDERS: ATTEND Specialist | DX: N87.0 Mild cervical dysplasia (principal) ==

== ENCOUNTER → 2024-02-22 | Outpatient (CLI) | payer BC ==
[2024-02-22 10:56] LABS: BASO # 0.1 10^3/uL (0.0-0.2); BASO % 1.4 % (0.0-1.0); EOS # 0.3 10^3/uL (0.0-0.5); EOS % 5.1 % (0.0-3.0); HEMATOCRIT 40.4 % (36.0-47.0); HEMOGLOBIN 13.3 g/dl (12.0-15.5); LYMPH # 1.8 10^3/uL (1.5-5.0); LYMPH % 29.4 % (24.0-44.0); MEAN CORPUSCULAR HEMOGLOBIN 29.2 pg (27.0-33.0); MEAN CORPUSCULAR HGB CONC 32.9 g/dl (32.0-36.5); MEAN CORPUSCULAR VOLUME 88.6 fl (80.0-96.0); MONO # 0.4 10^3/uL (0.0-0.8); MONO % 6.2 % (2.0-8.0); NEUTROPHILS # 3.6 10^3/uL (1.5-8.5); NEUTROPHILS % 57.7 % (36.0-66.0); PLATELET COUNT, AUTOMATED 361 10^3/uL (150-450); RED BLOOD COUNT 4.56 10^6/uL (4.00-5.40); WHITE BLOOD COUNT 6.3 10^3/uL (4.0-10.0)
[2024-02-22 11:05] LABS: ALBUMIN 3.4 G/DL (3.2-5.2); ALKALINE PHOSPHATASE 52 U/L (35-104); ALT/SGPT < 9 U/L (7.0-40); AST/SGOT < 8 U/L (<34); BILIRUBIN,TOTAL 0.5 MG/DL (0.3-1.2); BLOOD UREA NITROGEN 12 MG/DL (9-23); CARBON DIOXIDE LEVEL 26 MMOL/L (20-31); CHLORIDE LEVEL 109 MMOL/L (98-107); CHOLESTEROL LEVEL 164 MG/DL (<200); CHOLESTEROL RISK RATIO 2.67 (<5); CREATININE FOR GFR 0.91 MG/DL (0.55-1.30); GLOMERULAR FILTRATION RATE > 60.0 (>51); GLUCOSE, FASTING 89 MG/DL (60-100); HDL CHOLESTEROL 61.3 MG/DL (>40); LDL CHOLESTEROL 80.3 MG/DL (<100); NON-HDL-C 102.7 MG/DL; POTASSIUM SERUM 4.3 MMOL/L (3.5-5.1); SODIUM LEVEL 138 MMOL/L (136-145); TOTAL PROTEIN 6.4 G/DL (5.7-8.2); TRIGLYCERIDES LEVEL 112 MG/DL (<150)
== END ==
LOC: M PLALAB 08:01
PROVIDERS: ATTEND Nurse Practitioner Family
DX: Z00.00 Encounter for general adult medical examination without abnormal findings (principal)

== ENCOUNTER → 2024-03-07 | Outpatient (CLI) | payer BC | LOC: M PLAIMG 13:28 | PROVIDERS: ATTEND Nurse Practitioner Family | DX: R91.8 Other nonspecific abnormal finding of lung field (principal); J47.9 Bronchiectasis, uncomplicated ==

== ENCOUNTER → 2024-07-12 | Outpatient (REF) | payer BC ==
[2024-07-12 14:45] LABS: Trichomonas vaginalis (AMP) NOT DETECTED (NEGATIVE)
[2024-07-12 15:08] LABS: GC DNA AMPLIFICATION NEGATIVE (NEGATIVE)
[2024-07-14 13:02] LABS: HPV APTIMA Not Detected (Not Detected)
== END ==
LOC: M SFHCWAGY 12:43
PROVIDERS: ATTEND Specialist
DX: Z11.3 Encounter for screening for infections with a predominantly sexual mode of transmission (principal); Z12.4 Encounter for screening for malignant neoplasm of cervix; R87.612 Low grade squamous intraepithelial lesion on cytologic smear of cervix (LGSIL)
CPT/HCPCS: 87624; 87661; 87810; 87850; G0123

== ENCOUNTER → 2024-07-12 | Outpatient (CLI) | payer BC | LOC: M WHC 08:58 | PROVIDERS: ATTEND Specialist | DX: Z12.31 Encounter for screening mammogram for malignant neoplasm of breast (principal) ==

== ENCOUNTER → 2024-08-18 | Outpatient (CLI) | payer BC ==
[~2024-08-18] MED LIST changes: -PREG50CA PO; +PREG50CA87 PO
[2024-08-18 13:17] LABS: PLATELET COUNT, AUTOMATED 435 10^3/uL (150-450)
[2024-08-18 13:20] LABS: INR 0.93; PARTIAL THROMBOPLASTIN TIME 30.8 SECONDS (24.8-34.2); PROTHROMBIN TIME 12.8 SECONDS (12.5-14.5)
== END ==
LOC: M PLALAB 10:13
PROVIDERS: ATTEND Physician Assistant
DX: Z01.818 Encounter for other preprocedural examination (principal)

== ENCOUNTER → 2024-11-29 | Outpatient (CLI) | payer BC ==
[2024-11-29 18:45] LABS: CALCIUM LEVEL 9.4 MG/DL (8.5-10.1); CARBON DIOXIDE LEVEL 24.0 MMOL/L (20-31); CHLORIDE LEVEL 106.0 MMOL/L (98-107); CHOLESTEROL LEVEL 194.0 MG/DL (<200); CHOLESTEROL RISK RATIO 2.65 (<5); CREATININE FOR GFR 0.88 MG/DL (0.55-1.30); GLOMERULAR FILTRATION RATE 79.5 (>51); LDL CHOLESTEROL 103.4 MG/DL (<100); NON-HDL-C 121.0 MG/DL; POTASSIUM SERUM 4.5 MMOL/L (3.5-5.1); SODIUM LEVEL 138.0 MMOL/L (136-145); TRIGLYCERIDES LEVEL 88.0 MG/DL (<150)
[2024-11-29 18:47] LABS: BASO # 0.1 10^3/uL (0.0-0.2); BASO % 1.1 % (0.0-1.0); EOS # 0.4 10^3/uL (0.0-0.5); EOS % 4.5 % (0.0-3.0); LYMPH # 2.3 10^3/uL (1.5-5.0); LYMPH % 27.8 % (24.0-44.0); MONO # 0.6 10^3/uL (0.0-0.8); MONO % 6.6 % (2.0-8.0); NEUTROPHILS # 5.0 10^3/uL (1.5-8.5); NEUTROPHILS % 59.8 % (36.0-66.0); PLATELET COUNT, AUTOMATED 454 10^3/uL (150-450)
== END ==
LOC: M PLAIMG 14:00
PROVIDERS: ATTEND Nurse Practitioner Family
DX: Z00.00 Encounter for general adult medical examination without abnormal findings (principal); K56.41 Fecal impaction; M54.50 Low back pain, unspecified; N39.0 Urinary tract infection, site not specified; R35.0 Frequency of micturition

== ENCOUNTER → 2025-01-23 | Outpatient (REF) | payer BC ==
[2025-01-23 12:07] LABS: Trichomonas vaginalis (AMP) NOT DETECTED (NEGATIVE)
[2025-01-23 12:31] LABS: GC DNA AMPLIFICATION NEGATIVE (NEGATIVE)
[2025-01-25 15:47] LABS: HPV APTIMA Not Detected (Not Detected)
== END ==
LOC: M SFHCWAGY 10:24
PROVIDERS: ATTEND Specialist
DX: Z01.419 Encounter for gynecological examination (general) (routine) without abnormal findings (principal); R87.612 Low grade squamous intraepithelial lesion on cytologic smear of cervix (LGSIL)
CPT/HCPCS: 87624; 87661; 87810; 87850; G0123